=== PATIENT | female | born 1985 | race Caucasian/White ===

== ENCOUNTER 2018-06-23 11:50 | Emergency (ER) | payer MEDICAID ==
[~2018-06-23] VITALS: Ht 157.5 cm; Wt 60.0 kg
[~2018-06-23 11:50] MED LIST: MEDR150D9 IM; ONDA4TAB59 PO; PANT40TA39 PO
[2018-06-23 12:24] LABS: URINE HCG NEGATIVE (NEG)
[2018-06-23 12:25] LABS: CLARITY,URINE CLEAR (Clear); COLOR,URINE ORANGE (Yellow)
[2018-06-23 12:30] LABS: UA COLLECTION TYPE CLN CATCH MIDSTREAM
[2018-06-23 12:32] LABS: BACTERIA,URINE NONE SEEN /HPF (Neg); MUCUS STRANDS NONE SEEN /LPF (Neg); RBC,URINE NONE SEEN /HPF (0-2); SQUAMOUS EPITHELIAL CELL,UR FEW /LPF (FEW)
[2018-06-23] MEDS ORDERED: mag hydrox/Alum hydrox/simeth 30ml oral suspension PO ONE (12:45)
[2018-06-23] MEDS ORDERED: LIDOcaine Viscous 15ml cup PO ONE (12:45)
[2018-06-23] MEDS ORDERED: famotidine 20mg tablet PO ONE (12:45)
[2018-06-23] MEDS ORDERED: pantoprazole 40mg Tablet.DR PO ONE (12:45)
[2018-06-23] MEDS ORDERED: ondansetron 4mg rapidly disintigrating tab PO ONE (12:45)
[2018-06-23 12:46] LABS: BASOPHILS % (AUTO) 0.6 % (0-1); EOSINOPHILS # (AUTO) 0.1 X10'3 (0-0.9); EOSINOPHILS % (AUTO) 1.5 % (0-6); HEMATOCRIT 39.6 % (35.0-45.0); HEMOGLOBIN 13.3 g/dl (12.0-16.0); LYMPHOCYTES # (AUTO) 2.4 X10'3 (1.1-4.8); LYMPHOCYTES % (AUTO) 31.1 % (21-51); MEAN CORPUSCULAR HGB CONC 33.6 % (33.0-36.5); MEAN CORPUSCULAR VOLUME 89.3 FL (78-98); MEAN PLATELET VOLUME 7.5 FL (7.4-10.4); MONOCYTES # (AUTO) 0.5 X10'3 (0-0.9); MONOCYTES % (AUTO) 6.4 % (2-12); NEUTROPHILS # (AUTO) 4.6 X10'3 (1.8-7.7); NEUTROPHILS % (AUTO) 60.4 % (42-75); PLATELET COUNT 259 X10'3 (140-440); RED BLOOD COUNT 4.44 X10'6 (4.20-5.60); RED CELL DISTRIBUTION WIDTH 13.5 % (11.5-14.5); WHITE BLOOD COUNT 7.6 X10'3 (4.5-11.0)
[2018-06-23 12:55] LABS: PROTHROMBIN TIME 10.7 SECONDS (9.0-12.0)
[2018-06-23 13:00] LABS: ALANINE AMINOTRANSFERASE 16 U/L (12-78); ALBUMIN 3.5 G/DL (3.4-5.0); ALBUMIN/GLOBULIN RATIO 1.1 (1.1-1.5); ALKALINE PHOSPHATASE 59 IU/L (46-116); ANION GAP 8 (8-16); ASPARTATE AMINO TRANSFERASE 12 U/L (10-37); BILIRUBIN,TOTAL 0.3 MG/DL (0.1-1.0); BLOOD UREA NITROGEN 7 MG/DL (7-18); BUN/CREATININE RATIO 9.9 (6.6-38.0); CALCIUM 8.7 MG/DL (8.5-10.1); CHLORIDE 105 MMOL/L (99-107); CREATININE 0.71 MG/DL (0.40-0.90); GLUCOSE 90 MG/DL (70-104); SODIUM 139 MMOL/L (135-145); TOTAL CARBON DIOXIDE 25.7 MMOL/L (24-32); TOTAL PROTEIN 6.8 G/DL (6.4-8.2); eGFR > 90 ML/MIN
[2018-06-23] MEDS ORDERED: PANT20TA3 PO (13:41)
[2018-06-23] MEDS ORDERED: ONDA8TAB9 PO (13:41)
[2018-06-23] MEDS ORDERED: CIP750T PO (13:41)
[2018-06-23] MEDS ORDERED: METR500T4 PO (13:41)
[2018-06-23 13:52] VITALS: BP 117/84
== END 2018-06-23 13:52 | disposition home or self-care (01) ==
LOC: ER 11:51
DX: K29.00 Acute gastritis without bleeding (principal); N39.0 Urinary tract infection, site not specified; F12.90 Cannabis use, unspecified, uncomplicated; Z79.2 Long term (current) use of antibiotics; Z79.899 Other long term (current) drug therapy
CPT/HCPCS: 36415; 80053; 81001; 81025; 85025; 85610; 87077; 87088; 87186; 99284

== ENCOUNTER 2018-12-13 07:53 | Emergency (ER) | payer MEDICAID ==
[~2018-12-13] VITALS: Ht 157.5 cm; Wt 76.0 kg
[~2018-12-13 07:53] MED LIST changes: +ONDA8TAB9 PO; +PANT20TA3 PO
[2018-12-13 07:58] VITALS: BP 150/96
[2018-12-13] MEDS ORDERED: LIDOcaine 1% w/epiNEPHrine 1:200,000 30ml vial IM ONE (08:15)
[2018-12-13] MEDS ORDERED: TETanus/Pertussis (Acell)/Diphther VAC/PF (Tdap-Adult) 0.5ml syringe IM ONE (08:15)
--- NOTE | 2018-12-13 08:15 | NUR ---
SET UP FOR I/D
[2018-12-13] MEDS ORDERED: mupirocin 2% ointment 22GM TP STA (08:24)
[2018-12-13] MEDS ORDERED: SULF1TAB49 PO (08:24)
[2018-12-13] MEDS ORDERED: CEPH-572 PO (08:24)
== END 2018-12-13 09:08 | disposition home or self-care (01) ==
LOC: ER 07:54
DX: L03.011 Cellulitis of right finger (principal); F41.9 Anxiety disorder, unspecified; F17.200 Nicotine dependence, unspecified, uncomplicated; F12.10 Cannabis abuse, uncomplicated; Z88.6 Allergy status to analgesic agent; Z87.440 Personal history of urinary (tract) infections
CPT/HCPCS: 10060; 90471; 90715; 99283

== ENCOUNTER 2019-11-06 13:30 | Emergency (ER) | payer MEDICAID, OTHER ==
[~2019-11-06] VITALS: Ht 157.5 cm; Wt 68.2 kg
[2019-11-06 13:39] VITALS: BP 126/85
[2019-11-06] MEDS ORDERED: CEPH500C5 PO (14:52)
== END 2019-11-06 14:59 | disposition home or self-care (01) ==
LOC: ER 13:30
DX: L03.114 Cellulitis of left upper limb (principal); F12.90 Cannabis use, unspecified, uncomplicated; Z98.890 Other specified postprocedural states; Z88.6 Allergy status to analgesic agent; Z79.899 Other long term (current) drug therapy
CPT/HCPCS: 99283

== ENCOUNTER 2021-09-08 22:38 | Emergency (ER) | payer MEDICAID, OTHER ==
[~2021-09-08] VITALS: Ht 157.5 cm; Wt 72.7 kg
[~2021-09-08 22:38] MED LIST changes: +PANT20TA18 PO; -PANT20TA3 PO
[2021-09-08] MEDS ORDERED: ondansetron/PF 4mg/2ml inj IV ONE (22:55)
[2021-09-08] MEDS ORDERED: normal saline 1000ML IV soln IVB ONE (22:55)
[2021-09-08 23:17] LABS: BASOPHILS % (AUTO) 0.1 % (0-1); EOSINOPHILS % (AUTO) 0.2 % (0-6); HEMATOCRIT 39.5 % (35.0-45.0); HEMOGLOBIN 13.4 g/dl (12.0-16.0); LYMPHOCYTES # (AUTO) 0.7 X10'3 (1.1-4.8); LYMPHOCYTES % (AUTO) 6.4 % (21-51); MEAN CORPUSCULAR HEMOGLOBIN 29.2 PG (27.0-31.0); MEAN CORPUSCULAR VOLUME 85.9 FL (78-98); MEAN PLATELET VOLUME 7.5 FL (7.4-10.4); MONOCYTES # (AUTO) 0.5 X10'3 (0-0.9); MONOCYTES % (AUTO) 4.6 % (2-12); NEUTROPHILS # (AUTO) 9.2 X10'3 (1.8-7.7); NEUTROPHILS % (AUTO) 88.7 % (42-75); PLATELET COUNT 270 X10'3 (140-440); RED CELL DISTRIBUTION WIDTH 12.6 % (11.5-14.5); WHITE BLOOD COUNT 10.4 X10'3 (4.5-11.0)
[2021-09-08 23:30] LABS: ALANINE AMINOTRANSFERASE 21 U/L (12-78); ALBUMIN 3.5 G/DL (3.4-5.0); ALBUMIN/GLOBULIN RATIO 0.9 (1.1-1.5); ALKALINE PHOSPHATASE 82 IU/L (46-116); ANION GAP 12 (8-16); ASPARTATE AMINO TRANSFERASE 13 U/L (10-37); BILIRUBIN,TOTAL 0.6 MG/DL (0.1-1.0); BLOOD UREA NITROGEN 7 MG/DL (7-18); BUN/CREATININE RATIO 9.6 (6.6-38.0); CALCIUM 8.7 MG/DL (8.5-10.1); CHLORIDE 104 MMOL/L (99-107); CREATININE 0.73 MG/DL (0.40-0.90); GLUCOSE 113 MG/DL (70-104); LIPASE 51 U/L (73-393); POTASSIUM 3.7 MMOL/L (3.5-5.1); SODIUM 138 MMOL/L (135-145); TOTAL CARBON DIOXIDE 21.6 MMOL/L (24-32); TOTAL PROTEIN 7.5 G/DL (6.4-8.2); eGFR > 90 ML/MIN
[2021-09-09] MEDS ORDERED: ONDA4TAB6 PO (00:13)
[2021-09-09 00:56] VITALS: BP 123/75
== END 2021-09-09 00:59 | disposition home or self-care (01) ==
LOC: ER 22:48
DX: R11.2 Nausea with vomiting, unspecified (principal); R19.7 Diarrhea, unspecified; R09.81 Nasal congestion; E86.0 Dehydration; R09.89 Other specified symptoms and signs involving the circulatory and respiratory systems; F41.9 Anxiety disorder, unspecified; F12.90 Cannabis use, unspecified, uncomplicated; Z87.440 Personal history of urinary (tract) infections; Z98.890 Other specified postprocedural states; Z88.6 Allergy status to analgesic agent; Z88.8 Allergy status to other drugs, medicaments and biological substances; Z79.899 Other long term (current) drug therapy
CPT/HCPCS: 36415; 80053; 83690; 85025; 96374; 99283; J2405; J7030; 96361

== ENCOUNTER 2022-07-12 09:50 | Emergency (ER) | payer MEDICAID ==
[~2022-07-12] VITALS: Ht 157.5 cm; Wt 79.5 kg
[~2022-07-12 09:50] MED LIST changes: +ONDA4TAB6 PO
[2022-07-12 10:04] VITALS: BP 137/103
[2022-07-12] MEDS ORDERED: TRAM50TA2 PO (10:30)
[2022-07-12] MEDS ORDERED: PENI250T2 PO (10:30)
== END 2022-07-12 10:47 | disposition home or self-care (01) ==
LOC: ER 09:50
DX: K08.89 Other specified disorders of teeth and supporting structures (principal); F41.9 Anxiety disorder, unspecified; F12.10 Cannabis abuse, uncomplicated; Z88.6 Allergy status to analgesic agent; Z79.899 Other long term (current) drug therapy
CPT/HCPCS: 99283

== ENCOUNTER 2022-12-17 20:02 | Emergency (ER) | payer MEDICAID ==
[~2022-12-17] VITALS: Ht 157.5 cm; Wt 79.5 kg
[2022-12-17 20:16] VITALS: BP 145/96
--- NOTE | 2022-12-17 21:36 | NUR ---
DIANNE LENS USED FOR PATIENT ON RIGHT EYE.
== END 2022-12-17 22:01 | disposition home or self-care (01) ==
LOC: ER 20:02
DX: T15.91XA Foreign body on external eye, part unspecified, right eye, initial encounter (principal); F41.9 Anxiety disorder, unspecified; F12.10 Cannabis abuse, uncomplicated; Z98.890 Other specified postprocedural states; Z88.6 Allergy status to analgesic agent; Z88.8 Allergy status to other drugs, medicaments and biological substances; Z91.018 Allergy to other foods
CPT/HCPCS: 99284

== ENCOUNTER 2023-02-24 19:46 | Emergency (ER) | payer MEDICAID ==
[~2023-02-24] VITALS: Ht 157.5 cm; Wt 86.4 kg
[2023-02-24] MEDS ORDERED: azithromycin 250mg tablet PO STA (21:36)
[2023-02-24] MEDS ORDERED: azithromycin 250mg tablet PO ONE (21:40)
[2023-02-24] MEDS ORDERED: CefTRIAXone 500MG IM Kit w/LIDOcaine IM ONE (21:40)
[2023-02-24] MEDS ORDERED: NITR100C6 PO (21:43)
[2023-02-24 21:52] VITALS: BP 132/88
--- NOTE | 2023-02-24 22:13 | NUR ---
DR GARG MADE AWARE PT REFUSED MED R/T 'VOMITING' OF MED. HE WILL CHANGE RX
[2023-02-24] MEDS ORDERED: DOXY-1 PO (22:18)
== END 2023-02-24 22:36 | disposition home or self-care (01) ==
LOC: ER 19:46
DX: N34.2 Other urethritis (principal); F41.9 Anxiety disorder, unspecified; Z98.890 Other specified postprocedural states; Z88.6 Allergy status to analgesic agent; Z91.018 Allergy to other foods; Z88.8 Allergy status to other drugs, medicaments and biological substances; Z79.899 Other long term (current) drug therapy
CPT/HCPCS: 96372; 99283; J0696